=== PATIENT | male | born 1965 | race Caucasian/White ===

== ENCOUNTER 2017-05-30 12:14 | Inpatient (IN) | payer BC ==
[~2017-05-30] VITALS: Ht 182.9 cm; Wt 81.6 kg
[~2017-05-30 12:14] MED LIST: ASPI81TA27 PO; ATOR20TA50 PO; CLOP75TA41 PO; METO25TA5 PO; RANO500T2 PO
[2017-05-30] MEDS ORDERED: IODIXANOL 320MG/ML 100ML BTL IV ONE (12:16)
[2017-05-30] MEDS ORDERED: LIDOCAINE 2%HCL (LOCAL ANESTH.) INJ 20ML MDV ONE (12:16)
[2017-05-30] MEDS ORDERED: ANGIOMAX 250 MG VIAL IV ONE (13:15)
[2017-05-30] MEDS ORDERED: fentaNYL CITRATE 100 MCG/2 ML VL ONE (13:15)
[2017-05-30] MEDS ORDERED: SODIUM CHL 0.9% 50 ML ONE (13:16)
[2017-05-30] MEDS ORDERED: MIDAZOLAM HCL 1MG/1ML-2 ML VIAL ONE (13:16)
[2017-05-30] MEDS ORDERED: VERAPAMIL 2.5MG/ML INJ 2ML VIAL IV ONE (13:35)
[2017-05-30] MEDS ORDERED: ADENOSINE 90 MG/30 ML INJ IV ONE (14:01)
[2017-05-30] MEDS ORDERED: CLOPIDOGREL 300 MG TAB ONE (14:14)
[2017-05-30] MEDS ORDERED: ASPirin 81 mg TAB ONE (14:17)
[2017-05-30] MEDS ORDERED: ASPirin 325 MG TAB ONE (14:21)
[2017-05-30] MEDS ORDERED: ACETAMINOPHEN 500 MG TAB PO PRN (14:45)
[2017-05-30] MEDS ORDERED: NITROGLYCERIN 0.4 MG SL TAB SL PRN (14:45)
[2017-05-30] MEDS ORDERED: ONDANSETRON HCL 4 MG/2 ML VIAL IV PRN (14:45)
[2017-05-30] MEDS ORDERED: MORPHINE SULFATE 10 MG/ML INJ 1ML SDV IV PRN (14:45)
[2017-05-30] MEDS ORDERED: HYDROcodone-ACET 5/325MG TAB PO PRN (14:45)
[2017-05-30] MEDS ORDERED: METOPROLOL TARTRATE 25 MG TAB PO ONE (15:00)
[2017-05-30] MEDS ORDERED: ASPirin-EC 81 mg tab PO ONE (15:00)
[2017-05-30] MEDS ORDERED: CLOPIDOGREL BISULFATE 75 MG TAB PO ONE (15:00)
[2017-05-30] MEDS ORDERED: ATORVASTATIN 20 MG TAB PO ONE (15:00)
[2017-05-30] MEDS ORDERED: RANOLAZINE ER 500 MG TAB PO ONE (15:00)
[2017-05-30] MEDS: SODIUM CHLOR 0.9% PF (SALINE LOCK) 10ML VIAL IV SCH (21:53)
[2017-05-30] MEDS: RANOLAZINE ER 500 MG TAB PO SCH ×2 (22:00→22:19)
[2017-05-30 22:27] VITALS: BP 104/65
[2017-05-31 05:13] VITALS: BP 107/74
[2017-05-31] MEDS: SODIUM CHLOR 0.9% PF (SALINE LOCK) 10ML VIAL IV SCH (06:00)
[2017-05-31 09:00] VITALS: BP 111/66
[2017-05-31] MEDS ORDERED: METOPROLOL TARTRATE 25 MG TAB PO SCH (10:00)
[2017-05-31] MEDS ORDERED: ASPirin-EC 81 mg tab PO SCH (10:00)
[2017-05-31] MEDS ORDERED: CLOPIDOGREL BISULFATE 75 MG TAB PO SCH (10:00)
[2017-05-31] MEDS ORDERED: ATORVASTATIN 20 MG TAB PO SCH (10:00)
[2017-05-31] MEDS: RANOLAZINE ER 500 MG TAB PO SCH (10:00)
== END 2017-05-31 12:00 | disposition home or self-care (01) | DRG 247 ==
LOC: CATH 12:14 → TELE-CENTR 12:15
PROVIDERS: ADMIT Internal Medicine; ATTEND Internal Medicine
PROC: 027034Z Dilation of Coronary Artery, One Artery with Drug-eluting Intraluminal Device, Percutaneous Approach (ICD-10-PCS; principal; 2017-05-30)
PROC: 4A033BC Measurement of Arterial Pressure, Coronary, Percutaneous Approach (ICD-10-PCS; 2017-05-30)
PROC: 4A023N7 Measurement of Cardiac Sampling and Pressure, Left Heart, Percutaneous Approach (ICD-10-PCS; 2017-05-30)
PROC: B2111ZZ Fluoroscopy of Multiple Coronary Arteries using Low Osmolar Contrast (ICD-10-PCS; 2017-05-30)
DX: I25.110 Atherosclerotic heart disease of native coronary artery with unstable angina pectoris (principal)
CPT/HCPCS: 92928; 93005; 93458; 93571; 99152; C1874; J0153; J2250; Q9967